=== PATIENT | female | born 1995 | race Hispanic/Latino ===

== ENCOUNTER 2022-11-05 12:01 | Day surgery (SDC) | payer OTHER, SELFPAY ==
[2022-11-05 12:25] VITALS: BMI 25.4
[2022-11-05] MEDS ORDERED: hydrALAZINE 20 MG/ML VIAL SLOW IVP PRN (13:00)
== END 2022-11-05 13:17 | disposition home or self-care (01) ==
LOC: CSHLD/OP 12:01
PROVIDERS: ATTEND Student in an Organized Health Care Education/Training Program
DX: O36.8130 Decreased fetal movements, third trimester, not applicable or unspecified (principal); Z3A.32 32 weeks gestation of pregnancy
CPT/HCPCS: 99281

== ENCOUNTER 2023-01-04 03:01 | Inpatient (IN) | payer BC ==
[2023-01-04] MEDS ORDERED: Bupivacaine 0.25% HCL 30 ML VIAL ONE (08:00)
[2023-01-04 08:03] VITALS: BMI 26.4
[2023-01-04] MEDS ORDERED: Acetaminophen 500 MG TAB PO PRN (08:11)
[2023-01-04] MEDS ORDERED: Lidocaine 1% (PF) 30 ML VIAL SC PRN (08:38)
[2023-01-04] MEDS ORDERED: Ondansetron PF 4 MG/2 ML Vial IVP PRN ×2 (08:38→11:01)
[2023-01-04] MEDS ORDERED: Carboprost 250 MCG/ML AMP IM PRN (08:38)
[2023-01-04] MEDS ORDERED: Methylergonovine 0.2 MG/ML VIAL IM PRN (08:38)
[2023-01-04] MEDS ORDERED: Diphenoxylate HCl/Atropine Tablet PO PRN (08:38)
[2023-01-04] MEDS ORDERED: hydrALAZINE 20 MG/ML VIAL SLOW IVP PRN (08:38)
[2023-01-04] MEDS ORDERED: Misoprostol 200 MCG TAB PR PRN (08:38)
[2023-01-04] MEDS ORDERED: HYDROcodone/Acetaminophen 5/325 mg Tablet PO PRN (08:38)
[2023-01-04] MEDS ORDERED: Ibuprofen 800 MG TAB PO PRN (08:38)
[2023-01-04] MEDS ORDERED: Promethazine HCl 25 MG/ML VIAL IM PRN ×2 (08:38→11:01)
[2023-01-04] MEDS ORDERED: Penicillin G Potassium 5 MILL.UNITS in Sodium Chloride 0.9% 100 ML IVPB SCH (08:45)
[2023-01-04] MEDS ORDERED: NS w/ Oxytocin 30 units 500 ML IV SCH ×2 (08:45)
[2023-01-04 09:55] LABS: Hemoglobin 10.6 g/dL (12.0-15.5); Mean Corpuscular HGB CONC 32.8 g/dL (32.0-36.0); Mean Corpuscular Hemoglobin 26.6 pg (27.0-33.0); Mean Corpuscular Volume 81.2 fl (81.6-98.3); Mean Platelet Volume 11.1 fl (7.4-10.4); Platelet Count 270 10x3/uL (150-450); RBC Distribution Width 12.9 % (11.5-14.5); Red Blood Cell (RBC) Count 3.98 10x6/uL (3.90-5.03); White Blood Cell (WBC) Count 13.3 10x3/uL (3.5-10.5)
[2023-01-04] MEDS ORDERED: Fentanyl 2 mcg/Bup 0.1% Cadd 100 ML ONE ×2 (10:06→18:19)
[2023-01-04 10:30] LABS: HBSAg Index 0.14 S/CO (0-0.99); Hep B Surf Ag Non-Reactive S/CO (NonReactive)
[2023-01-04 10:32] LABS: Syphilis Antibody Nonreactive (Nonreactive); Syphilis Antibody Index 0.02 S/CO (<1.00 Non-Reactive)
[2023-01-04] MEDS ORDERED: Naloxone HCl 0.4 mg/ml Vial IVP PRN ×2 (11:01)
[2023-01-04] MEDS ORDERED: Moisturizing Cream (Eucerin) 113 GM JAR TOP PRN (11:01)
[2023-01-04] MEDS ORDERED: Acetaminophen 325 MG TAB PO PRN (11:01)
[2023-01-04] MEDS ORDERED: Lactated Ringer's 500 ML IV PRN (11:01)
[2023-01-04] MEDS ORDERED: ePHEDrine Sulfate 50 MG/10 ML VIAL SLOW IVP PRN (11:01)
[2023-01-04] MEDS ORDERED: diphenhydrAMINE 50 MG/ML VIAL IVP PRN (11:01)
[2023-01-04] MEDS ORDERED: Communication Order-Pharmacy FS SCH (11:15)
[2023-01-04] MEDS: Penicillin G 2.5 MILL.units 2.5 MILL.UNITS in Premix Bag 1 BAG IVPB SCH ×3 (13:47→23:09)
[2023-01-04] MEDS: Fentanyl 2 mcg/Bupivacaine 0.1% Cassette 100 ML EPIDURAL SCH ×2 (16:20→18:22)
[2023-01-04 21:17] LABS: SARS-CoV-2 NAA Rapid Test Not Detected (NotDetected)
[2023-01-05] MEDS ORDERED: Fentanyl 2 mcg/Bup 0.1% Cadd 100 ML ONE (00:15)
[2023-01-05] MEDS: Penicillin G 2.5 MILL.units 2.5 MILL.UNITS in Premix Bag 1 BAG IVPB SCH ×4 (03:04→20:25)
[2023-01-05] MEDS: Lactated Ringer's 1,000 ML IV SCH ×3 (03:06→20:26)
[2023-01-05] MEDS ORDERED: CEFAZOLIN 2 GM VIAL ONE (14:09)
[2023-01-05] MEDS ORDERED: Famotidine/PF 20 mg/2ml Vial ONE (14:09)
[2023-01-05] MEDS ORDERED: Azithromycin 500 MG VIAL ONE (14:09)
[2023-01-05] MEDS ORDERED: Bicitra 30 ML UDCUP PO PRN (14:11)
[2023-01-05] MEDS ORDERED: Famotidine/PF 20 mg/2ml Vial SLOW IVP PRN (14:11)
[2023-01-05] MEDS ORDERED: CEFAZOLIN 2 GM in Sodium Chloride 0.9% 100 ML IVPB SCH (14:15)
[2023-01-05] MEDS ORDERED: Azithromycin 500 MG in Sodium Chloride 0.9% 250 ML 250 ML IVPB SCH (14:15)
[2023-01-05] MEDS ORDERED: Oxytocin 10 UNITS/ML VIAL ONE ×2 (14:57→15:51)
[2023-01-05] MEDS ORDERED: Midazolam HCl 2 mg/2 ml Vial ONE (14:59)
[2023-01-05] MEDS ORDERED: Morphine PF 10 MG/10 ML VIAL ONE (15:03)
[2023-01-05] MEDS ORDERED: Promethazine HCl 25 MG SUPP PR PRN (15:12)
[2023-01-05] MEDS ORDERED: Ondansetron HCl/PF 4 MG/2 ML Vial IVP PRN (15:12)
[2023-01-05] MEDS ORDERED: Promethazine HCl 25 MG/ML VIAL IM PRN ×2 (15:12→17:32)
[2023-01-05] MEDS ORDERED: diphenhydrAMINE 50 MG/ML VIAL IVP PRN (15:12)
[2023-01-05] MEDS ORDERED: Naloxone HCl 0.4 mg/ml Vial IV PRN (15:12)
[2023-01-05] MEDS ORDERED: Fentanyl 100 MCG/2 ML VIAL SLOW IVP PRN (15:12)
[2023-01-05] MEDS ORDERED: L&D-Morphine 4 MG/ML VIAL SLOW IVP PRN (15:12)
[2023-01-05] MEDS ORDERED: Naloxone HCl 0.4 mg/ml Vial IVP PRN ×2 (15:12)
[2023-01-05] MEDS ORDERED: Ketorolac Tromethamine 30 MG/ML VIAL IVP PRN (15:12)
[2023-01-05] MEDS ORDERED: Ondansetron PF 4 MG/2 ML Vial IVP PRN ×2 (15:12→17:32)
[2023-01-05] MEDS ORDERED: Meperidine HCl/PF 25 MG/ML VIAL SLOW IVP PRN (15:12)
[2023-01-05] MEDS ORDERED: Moisturizing Cream (Eucerin) 113 GM JAR TOP PRN (15:12)
[2023-01-05] MEDS ORDERED: Ketorolac Tromethamine 30 MG/ML VIAL IVP SCH (15:15)
[2023-01-05] MEDS ORDERED: Communication Order-Pharmacy FS SCH (15:15)
[2023-01-05] MEDS ORDERED: Promethazine HCl 25 MG/ML VIAL ONE (15:51)
[2023-01-05] MEDS ORDERED: Dexamethasone 4 mg/ml Vial ONE (15:51)
[2023-01-05] MEDS ORDERED: PROPOFOL 20 ML ONE (15:51)
[2023-01-05] MEDS ORDERED: Chloroprocaine 3% PF 20 ML VIAL ONE (15:51)
[2023-01-05] MEDS ORDERED: Ketorolac Tromethamine 30 MG/ML VIAL ONE (15:51)
[2023-01-05] MEDS ORDERED: PHENYLEPHRINE-NS 100 MCG/ML 10 ML SYRINGE ONE (15:51)
[2023-01-05] MEDS ORDERED: Ondansetron PF 4 MG/2 ML Vial ONE (15:52)
[2023-01-05] MEDS ORDERED: Simethicone Chewable 80 MG TAB PO PRN (17:32)
[2023-01-05] MEDS ORDERED: Bisacodyl 10 MG SUPP PR PRN (17:32)
[2023-01-05] MEDS ORDERED: Lanolin Ointment 7 GM TUBE TOP PRN (17:32)
[2023-01-05] MEDS ORDERED: hydrALAZINE 20 MG/ML VIAL SLOW IVP PRN (17:32)
[2023-01-05] MEDS ORDERED: Boostrix 0.5 ML (Tdap) VIAL (>/=7 yrs of age) IM ONE (17:32)
[2023-01-05] MEDS ORDERED: diphenhydrAMINE 25 MG CAP PO PRN (17:32)
[2023-01-05] MEDS: Docusate 100 MG CAP PO SCH (21:25)
[2023-01-05] MEDS: Ferrous Sulfate 325 MG TAB PO SCH (21:25)
[2023-01-06] MEDS ORDERED: HYDROcodone/Acetaminophen 5/325 mg Tablet PO PRN (06:00)
[2023-01-06 06:01] LABS: Hemoglobin 8.9 g/dL (12.0-15.5); Mean Corpuscular HGB CONC 32.2 g/dL (32.0-36.0); Mean Corpuscular Hemoglobin 26.6 pg (27.0-33.0); Mean Corpuscular Volume 82.4 fl (81.6-98.3); Platelet Count 208 10x3/uL (150-450); RBC Distribution Width 13.2 % (11.5-14.5); Red Blood Cell (RBC) Count 3.35 10x6/uL (3.90-5.03); White Blood Cell (WBC) Count 15.2 10x3/uL (3.5-10.5)
[2023-01-06] MEDS: Ferrous Sulfate 325 MG TAB PO SCH ×2 (08:12→21:11)
[2023-01-06] MEDS: Docusate 100 MG CAP PO SCH ×2 (08:12→21:11)
[2023-01-06] MEDS: Prenatal Vitamin 1 TAB PO SCH (08:12)
[2023-01-06] MEDS: Ibuprofen 800 MG TAB PO SCH ×2 (14:56→21:11)
[2023-01-06] MEDS: HYDROcodone/Acetaminophen 5/325 mg Tablet PO PRN ×2 (16:10→20:07)
[2023-01-07] MEDS: HYDROcodone/Acetaminophen 5/325 mg Tablet PO PRN ×2 (00:07→10:11)
[2023-01-07] MEDS: Ibuprofen 800 MG TAB PO SCH ×3 (05:51→21:19)
[2023-01-07] MEDS: Docusate 100 MG CAP PO SCH ×2 (08:27→21:19)
[2023-01-07] MEDS: Prenatal Vitamin 1 TAB PO SCH (08:27)
[2023-01-07] MEDS: Ferrous Sulfate 325 MG TAB PO SCH ×2 (08:27→21:19)
[2023-01-08] MEDS: HYDROcodone/Acetaminophen 5/325 mg Tablet PO PRN ×2 (05:10→13:05)
[2023-01-08] MEDS: Ibuprofen 800 MG TAB PO SCH ×2 (05:11→14:14)
[2023-01-08] MEDS: Ferrous Sulfate 325 MG TAB PO SCH (07:48)
[2023-01-08] MEDS: Docusate 100 MG CAP PO SCH (07:49)
[2023-01-08] MEDS: Prenatal Vitamin 1 TAB PO SCH (07:49)
[2023-01-08 12:57] VITALS: BP 116/65; TEMP 98.3
== END 2023-01-08 15:35 | disposition home or self-care (01) | DRG 787 ==
LOC: CSHLD/OP 03:01 → CSHLD 09:16 → CSHPP 01-05 18:12
PROVIDERS: ADMIT Student in an Organized Health Care Education/Training Program; ATTEND Student in an Organized Health Care Education/Training Program
PROC: 10D00Z1 Extraction of Products of Conception, Low, Open Approach (ICD-10-PCS; principal; 2023-01-05)
PROC: 10H07YZ Insertion of Other Device into Products of Conception, Via Natural or Artificial Opening (ICD-10-PCS; 2023-01-05)
DX: O99.824 Streptococcus B carrier state complicating childbirth (principal); Z37.0 Single live birth; Z3A.40 40 weeks gestation of pregnancy; D62 Acute posthemorrhagic anemia; Z20.822 Contact with and (suspected) exposure to COVID-19; O32.8XX0 Maternal care for other malpresentation of fetus, not applicable or unspecified; O48.0 Post-term pregnancy; O99.344 Other mental disorders complicating childbirth; F41.9 Anxiety disorder, unspecified; O32.4XX0 Maternal care for high head at term, not applicable or unspecified; O42.02 Full-term premature rupture of membranes, onset of labor within 24 hours of rupture; O77.0 Labor and delivery complicated by meconium in amniotic fluid; O76 Abnormality in fetal heart rate and rhythm complicating labor and delivery; O62.1 Secondary uterine inertia; O90.81 Anemia of the puerperium; Z79.899 Other long term (current) drug therapy
CPT/HCPCS: 36415; 51702; 85027; 86780; 86850; 86900; 86901; 87340; 99285; J1100; J1885; J2250; J2274; J2401; J2405; J2540; J2550; J2590; J2704; J3490; J7120; S0020; U0002

== ENCOUNTER 2023-05-24 07:14 | Outpatient (CLI) | payer BC | END 2023-05-24 07:15 | disposition home or self-care (01) | LOC: CSHULT 07:14 | PROVIDERS: ATTEND Student in an Organized Health Care Education/Training Program | DX: R74.01 Elevation of levels of liver transaminase levels (principal) | CPT/HCPCS: 76705 ==

== ENCOUNTER 2024-10-14 11:08 | Outpatient (CLI) | payer BC | END 2024-10-14 11:09 | disposition home or self-care (01) | LOC: CSHULT 11:08 | DX: R10.2 Pelvic and perineal pain (principal); N83.291 Other ovarian cyst, right side | CPT/HCPCS: 76856 ==

== ENCOUNTER 2025-09-08 10:22 | Outpatient (CLI) | payer BC ==
[2025-09-08 11:32] LABS: #Basophils 0.04 10x3/uL (0.0-0.2); #Eosinophils 0.11 10x3/uL (0.0-0.5); #Monocytes 0.35 10x3/uL (0.0-1.1); #Neutrophils 2.79 10x3/uL (1.5-8.4); %Basophils 0.7 % (0.0-2.0); %Eosinophils 2.0 % (0.0-6.0); %Lymphocytes 39.7 % (18.0-47.0); %Monocytes 6.4 % (0.0-10.0); %Neutrophils 51.2 % (40.0-75.0); Hematocrit 38.6 % (34.9-44.5); Hemoglobin 12.7 g/dL (12.0-15.5); Mean Corpuscular Hemoglobin 28.2 pg (27.0-33.0); Mean Corpuscular Volume 85.8 fL (81.6-98.3); Platelet Count 218 10x3/uL (150-450); Red Blood Cell (RBC) Count 4.50 10x6/uL (3.90-5.03); White Blood Cell (WBC) Count 5.46 10x3/uL (3.5-10.5)
[2025-09-08 12:08] LABS: Anion Gap 9 mmol/L (10-20); BUN (Urea Nitrogen) 20 mg/dL (7.0-18.7); Calc. Creatinine Clearance 0 mL/min (70-130); Calcium 8.9 mg/dL (7.8-10.44); Carbon Dioxide 25 mmol/L (22-29); Chloride 108 mmol/L (98-107); Glucose 81 mg/dL (70-105); Potassium 4.3 mmol/L (3.5-5.1); Sodium 138 mmol/L (136-145)
[2025-09-08 17:22] LABS: BHCG - Serum Negative (NEGATIVE); Pregs Control Background? CLEAR/WHITE (CLR/WHITE); Pregs Control Bar Appear? YES (CONTROL BAR)
== END 2025-09-08 10:23 | disposition home or self-care (01) ==
LOC: CSHLAB 10:22
PROVIDERS: ATTEND Specialist
DX: Z01.812 Encounter for preprocedural laboratory examination (principal); K40.90 Unilateral inguinal hernia, without obstruction or gangrene, not specified as recurrent
CPT/HCPCS: 80048; 84703; 85025

== ENCOUNTER 2025-09-15 08:29 | Day surgery (SDC) | payer BC ==
[2025-09-08 11:24] VITALS: BMI 23.0
[2025-09-15] MEDS ORDERED: Acetaminophen 500 MG TAB ONE (08:45)
[2025-09-15] MEDS ORDERED: Ketorolac Tromethamine 30 MG (1 mL) VIAL ONE (08:45)
[2025-09-15] MEDS ORDERED: CEFAZOLIN 2 GM VIAL ONE (12:12)
[2025-09-15] MEDS ORDERED: PROPOFOL 20 ML ONE (12:15)
[2025-09-15] MEDS ORDERED: Rocuronium Bromide 10 MG/ML (10ML VIAL) ONE (12:16)
[2025-09-15] MEDS ORDERED: Glycopyrrolate 0.2 MG/ML 5 ML SYRINGE ONE (12:18)
[2025-09-15] MEDS ORDERED: Lidocaine 1% PF 5 ML VIAL ONE (12:19)
[2025-09-15] MEDS ORDERED: Bupivacaine/Epinephrine 0.25% 30 ML VIAL ONE (12:37)
[2025-09-15] MEDS ORDERED: PHENYLEPHRINE-NS 100 MCG/ML 10 ML SYRINGE ONE ×2 (13:10→14:40)
[2025-09-15] MEDS ORDERED: SUGAMMADEX SODIUM 200 MG/2 ML VIAL ONE (13:14)
[2025-09-15] MEDS ORDERED: CEFAZOLIN 1 GM VIAL ONE (14:23)
[2025-09-15] MEDS ORDERED: HYDROcodone/Acetaminophen 5/325 mg Tablet ONE (15:01)
== END 2025-09-15 15:05 | disposition home or self-care (01) ==
LOC: CSHSDC 08:29
PROVIDERS: ATTEND Specialist
PROC: 0YQ50ZZ Repair Right Inguinal Region, Open Approach (ICD-10-PCS; principal; 2025-09-15)
DX: K40.90 Unilateral inguinal hernia, without obstruction or gangrene, not specified as recurrent (principal)
CPT/HCPCS: J0690; J1100; J1885; J2250; J2704